=== PATIENT | female | born 1970 | race Caucasian/White ===

== ENCOUNTER 2020-06-21 04:31 | Emergency (ER) | payer BC ==
[~2020-06-21 04:31] MED LIST: CORTISPORIN-TC10 M1 OT; DOXYCYCLINE HY100 M2 PO; FLEXERIL 10 MG10 MG PO; INDOCIN CAP 2525 MG PO; MECLIZINE HCL25 M1 PO; NORCO 5-325 TA1 EACH PO; VALTREX1000 MG PO; Voltaren Gel 1% TOP; ZITHROMAX250 MG PO; ZOFRAN ODT 4 MG4 MG SL; ZOFRAN4 MG PO
[2020-06-21 06:45] LABS: HEMOGLOBIN 13.7 gm/dl (12.3-15.3); RED BLOOD COUNT 4.48 M/UL (4.00-5.10); WHITE BLOOD COUNT 8.8 K/UL (4.5-11.0)
[2020-06-21 07:20] LABS: BUN/CREATININE RATIO 12 (0-10)
== END 2020-06-21 08:46 | disposition home or self-care (01) ==
LOC: ER1 04:31
PROVIDERS: Student in an Organized Health Care Education/Training Program
DX: R07.89 Other chest pain (principal); G56.02 Carpal tunnel syndrome, left upper limb; I10 Essential (primary) hypertension; F17.210 Nicotine dependence, cigarettes, uncomplicated; Z90.710 Acquired absence of both cervix and uterus; Z88.0 Allergy status to penicillin
CPT/HCPCS: 71046; 80053; 81001; 82550; 82553; 83605; 83690; 83735; 83874; 83880; 84100; 84484; 84702; 85025; 85379; 93005; 99285

== ENCOUNTER 2020-08-14 03:54 | Emergency (ER) | payer BC ==
[2020-08-14] MEDS ORDERED: PREDNISONE 20 M20 MG PO (06:14)
[2020-08-14] MEDS ORDERED: ZOFRAN ODT 4 MG4 MG SL (06:14)
[2020-08-14] MEDS ORDERED: PEPCID20 MG PO (06:14)
== END 2020-08-14 06:33 | disposition home or self-care (01) ==
LOC: ER1 03:54
DX: L29.9 Pruritus, unspecified (principal); J45.909 Unspecified asthma, uncomplicated; F17.200 Nicotine dependence, unspecified, uncomplicated
CPT/HCPCS: 99282

== ENCOUNTER 2021-06-08 22:30 | Emergency (ER) | payer BC ==
[~2021-06-08 22:30] MED LIST changes: +PEPCID20 MG PO; +PREDNISONE 20 M20 MG PO
[2021-06-09 02:41] LABS: HEMOGLOBIN 14.4 gm/dl (12.3-15.3); RED BLOOD COUNT 4.51 M/UL (4.00-5.10); WHITE BLOOD COUNT 13.5 K/UL (4.5-11.0)
[2021-06-09 03:05] LABS: BUN/CREATININE RATIO 18 (0-10)
[2021-06-09] MEDS ORDERED: DOXYCYCLINE HY100 MG PO (04:10)
== END 2021-06-09 04:27 | disposition home or self-care (01) ==
LOC: ER1 22:30
PROVIDERS: Physician Assistant Medical
DX: R07.89 Other chest pain (principal); R53.1 Weakness; R20.2 Paresthesia of skin; R91.8 Other nonspecific abnormal finding of lung field; M79.652 Pain in left thigh; M54.6 Pain in thoracic spine; E78.5 Hyperlipidemia, unspecified; I10 Essential (primary) hypertension; J45.909 Unspecified asthma, uncomplicated; F17.210 Nicotine dependence, cigarettes, uncomplicated; Z88.2 Allergy status to sulfonamides; Z88.0 Allergy status to penicillin; Z88.6 Allergy status to analgesic agent; Z88.8 Allergy status to other drugs, medicaments and biological substances
CPT/HCPCS: 71045; 80053; 82550; 82553; 84439; 84443; 84484; 85025; 93005; 99285

== ENCOUNTER 2021-09-17 03:04 | Emergency (ER) | payer BC ==
[~2021-09-17 03:04] MED LIST changes: +DOXYCYCLINE HY100 MG PO
[2021-09-17 04:06] LABS: HEMOGLOBIN 14.1 gm/dl (12.3-15.3); RED BLOOD COUNT 4.37 M/UL (4.00-5.10); WHITE BLOOD COUNT 12.1 K/UL (4.5-11.0)
[2021-09-17] MEDS ORDERED: PROTONIX 40 MG40 M1 PO (06:25)
[2021-09-17] MEDS ORDERED: PHENERGAN 25 MG25 M1 PO (06:28)
== END 2021-09-17 06:35 | disposition home or self-care (01) ==
LOC: ER1 03:04
PROVIDERS: Family Medicine
DX: R07.89 Other chest pain (principal); R53.81 Other malaise; K30 Functional dyspepsia; R11.0 Nausea; E78.5 Hyperlipidemia, unspecified; I10 Essential (primary) hypertension; F17.200 Nicotine dependence, unspecified, uncomplicated; Z20.822 Contact with and (suspected) exposure to COVID-19; Z88.6 Allergy status to analgesic agent; Z88.0 Allergy status to penicillin; Z88.8 Allergy status to other drugs, medicaments and biological substances; Z79.82 Long term (current) use of aspirin; Z79.02 Long term (current) use of antithrombotics/antiplatelets
CPT/HCPCS: 0240U; 71045; 80053; 81001; 82550; 82553; 83605; 83690; 83735; 83880; 84439; 84443; 84484; 85025; 93005; 96374; 96375; 99285; C9113; J2405